=== PATIENT | female | born 1940 | race Two or more races ===

== ENCOUNTER 2021-05-22 11:05 | Emergency (ER) | payer SELFPAY ==
[~2021-05-22] VITALS: Ht 172.7 cm; Wt 76.2 kg
[2021-05-22 12:12] LABS: Basophils # (auto) 0.1 10 ^3/uL (0-0.2); Basophils % (auto) 1.5 % (0.0-2.0); Eosinophils # (auto) 0 10 ^3/uL (0-0.8); Eosinophils % (auto) 0.5 % (0.0-7.0); Hematocrit 37.6 % (36.0-46.0); Hemoglobin 12.6 g/dL (12.2-16.2); Lymphocytes # (auto) 1.1 10 ^3/uL (0.4-5.4); Lymphocytes % (auto) 11.7 % (10.0-50.0); Mean Corpuscular Hemoglobin 26.9 pg (28.0-32.0); Mean Corpuscular Hgb Conc. 33.5 g/dL (32.0-36.0); Mean Corpuscular Volume 80.1 fL (80.0-100.0); Monocytes # (auto) 0.6 10 ^3/uL (0-1.3); Monocytes % (auto) 6.8 % (0.0-12.0); Neutrophils # (auto) 7.2 10 ^3/uL (1.6-8.6); Neutrophils % (auto) 79.5 % (37.0-80.0); Nucleated Red Blood Cells % 0.1 %; Red Blood Cells 4.69 10^6/uL (4.0-5.20); Red Cell Distribution Width 15.3 % (11.8-14.3)
[2021-05-22 12:42] LABS: Albumin 3.5 g/dL (3.4-5.0); Calcium 9.3 mg/dL (8.5-10.1); Potassium 3.7 mmol/L (3.5-5.1)
[2021-05-22 12:46] LABS: BUN/Creatinine Ratio 15.6; Bilirubin, Total 0.4 mg/dL (0.2-1.0); Total Protein 8.3 g/dL (6.4-8.2)
[2021-05-22] MEDS ORDERED: cloNIDine HCL 0.1 MG TAB PO ONE (13:00)
[2021-05-22 13:42] VITALS: BP 197/83
[2021-05-22 14:01] LABS: Urine Bacteria FEW /hpf (None Seen); Urine Blood Negative /uL (Negative); Urine Specific Gravity 1.013 (1.001-1.035); Urine WBC 4 /hpf (0 - 5)
[2021-05-22] MEDS ORDERED: NITR-87 PO (14:17)
== END 2021-05-22 14:57 | disposition home or self-care (01) ==
LOC: ER 11:05
DX: S60.221A Contusion of right hand, initial encounter (principal); S50.02XA Contusion of left elbow, initial encounter; S80.01XA Contusion of right knee, initial encounter; N39.0 Urinary tract infection, site not specified; Z90.49 Acquired absence of other specified parts of digestive tract; W18.39XA Other fall on same level, initial encounter; Y93.89 Activity, other specified; Y92.89 Other specified places as the place of occurrence of the external cause; Y99.8 Other external cause status
CPT/HCPCS: 36415; 70450; 73080; 73130; 73562; 80053; 81001; 85025

== ENCOUNTER 2023-04-07 21:39 | Emergency (ER) | payer SELFPAY ==
[~2023-04-07] VITALS: Ht 172.7 cm; Wt 81.8 kg
[~2023-04-07 21:39] MED LIST: NITR-87 PO
[2023-04-08 00:06] LABS: Basophils # (auto) 0 10 ^3/uL (0-0.2); Eosinophils # (auto) 0.1 10 ^3/uL (0-0.8); Lymphocytes # (auto) 1.4 10 ^3/uL (0.4-5.4); Monocytes # (auto) 0.6 10 ^3/uL (0-1.3); Neutrophils # (auto) 4.1 10 ^3/uL (1.6-8.6)
[2023-04-08 00:07] LABS: Basophils % (auto) 0.5 % (0.0-2.0); Eosinophils % (auto) 1.2 % (0.0-7.0); Hematocrit 34.7 % (36.0-46.0); Hemoglobin 11.3 g/dL (12.2-16.2); Lymphocytes % (auto) 22.5 % (10.0-50.0); Mean Corpuscular Hemoglobin 25.4 pg (28.0-32.0); Mean Corpuscular Hgb Conc. 32.7 g/dL (32.0-36.0); Mean Corpuscular Volume 77.9 fL (80.0-100.0); Monocytes % (auto) 10.3 % (0.0-12.0); Neutrophils % (auto) 65.5 % (37.0-80.0); Nucleated Red Blood Cells % 0.1 %; Red Blood Cells 4.45 10^6/uL (4.0-5.20); Red Cell Distribution Width 16.5 % (11.8-14.3); White Blood Cell 6.3 10^3/uL (4.4-10.8)
[2023-04-08 00:10] LABS: Chloride 106 mmol/L (98-107); Potassium 3.7 mmol/L (3.5-5.1); Sodium 137 mmol/L (136-145)
[2023-04-08 00:11] LABS: Anion Gap 6 (5-15); Carbon Dioxide 25 mmol/L (20-30)
[2023-04-08 00:16] LABS: Glucose 97 mg/dL (74-106)
[2023-04-08 00:17] LABS: BUN/Creatinine Ratio 15.8 (10.0-20.0); Blood Urea Nitrogen 15 mg/dL (9-23); Magnesium 1.9 mg/dL (1.6-2.6)
[2023-04-08] MEDS ORDERED: PRED10TA PO (00:19)
[2023-04-08] MEDS ORDERED: HYDR-4902 PO (00:19)
[2023-04-08 02:00] VITALS: PULSE 82; RESP 16; O2SAT 96
[2023-04-08] MEDS ORDERED: HYDROcodone-ACET 10/325MG TAB PO ONE (03:00)
[2023-04-08 04:52] LABS: Urine Bacteria FEW /hpf (None Seen); Urine Blood Negative /uL (Negative); Urine Clarity HAZY (Clear); Urine Color Yellow (Yellow); Urine Hyaline Cast FEW /lpf (0 - 2); Urine Protein, UAD TRACE (Negative); Urine Specific Gravity 1.025 (1.001-1.035); Urine WBC 6 /hpf (0 - 5)
[2023-04-08 05:18] VITALS: BP 143/73; PULSE 72; RESP 16; TEMP 98; O2SAT 98
== END 2023-04-08 05:20 | disposition home or self-care (01) ==
LOC: ER 21:39
DX: M19.90 Unspecified osteoarthritis, unspecified site (principal); Z98.890 Other specified postprocedural states; Z79.899 Other long term (current) drug therapy
CPT/HCPCS: 36415; 80048; 81001; 83735; 85025